=== PATIENT | female | born 1985 | race Caucasian/White ===

== ENCOUNTER 2021-01-28 13:46 | Outpatient (REF) | payer BC, SELFPAY ==
[2021-01-28 14:35] LABS: Influenza A PCR NEGATIVE (Negative); Influenza B PCR NEGATIVE (Negative); Resp Syncy Virus RNA Qual PCR NEGATIVE (Negative); SARS COV2 PCR INHOUSE POSITIVE (Negative)
== END 2021-01-28 13:47 | disposition home or self-care (01) ==
LOC: HO.LNP 13:46
PROVIDERS: Visit Provider Family Medicine
DX: Z20.822 Contact with and (suspected) exposure to COVID-19 (principal); B34.9 Viral infection, unspecified
CPT/HCPCS: 0241U